=== PATIENT | male | born 1950 | race Caucasian/White ===

== ENCOUNTER 2021-03-25 06:50 | Day surgery (SDC) | payer MEDICARE, OTHER ==
[~2021-03-25] VITALS: Ht 182.9 cm; Wt 69.9 kg
[~2021-03-25 06:50] MED LIST: AMLO2.5T2 PO; CEPH-585 PO; CLOP75TA15 PO; FERR324T4 PO; LISI40TA13 PO; NICO-687 TD
[2021-03-25 07:22] VITALS: BP 181/83
[2021-03-25] MEDS ORDERED: LIDOcaine 1% 30ml preserv. free vial SQ STA (08:17)
[2021-03-25 09:40] VITALS: BP 184/85
== END 2021-03-25 09:45 | disposition home or self-care (01) ==
LOC: SSTAY O 06:50
PROVIDERS: ATTEND Radiology Vascular & Interventional Radiology
DX: I97.638 Postprocedural hematoma of a circulatory system organ or structure following other circulatory system procedure (principal); F17.210 Nicotine dependence, cigarettes, uncomplicated; Z79.01 Long term (current) use of anticoagulants; Z79.899 Other long term (current) drug therapy; Y83.8 Other surgical procedures as the cause of abnormal reaction of the patient, or of later complication, without mention of misadventure at the time of the procedure; Y92.89 Other specified places as the place of occurrence of the external cause
CPT/HCPCS: 10030

== ENCOUNTER 2021-04-01 08:56 | Day surgery (SDC) | payer MEDICARE, OTHER ==
[~2021-04-01] VITALS: Ht 182.9 cm; Wt 70.6 kg
[~2021-04-01 08:56] MED LIST changes: -CEPH-585 PO; +DOXYCYCLINE IPL ONE; +DOXYCYCLINE IV ONE; -FERR324T4 PO; -NICO-687 TD; +NORMAL SALINE IPL ONE; +NORMAL SALINE IV ONE
[2021-04-01 09:35] VITALS: BP 161/84
[2021-04-01] MEDS ORDERED: LIDOcaine 1% 30ml preserv. free vial IJ STA (10:27)
--- NOTE | 2021-04-01 11:40 | NUR ---
Seroma drained from Left groin by IR Staff Addendum: 04/01/21 at 1316 by Roberto Santana RN Amended: Links added.
--- NOTE | 2021-04-01 13:00 | NUR ---
Attempted to remove the ABX injected post drainage. No fluid found in seroma site. Pt will be discharged. Addendum: 04/01/21 at 1316 by Roberto Santana RN Amended: Links added.
[2021-04-01 13:01] VITALS: BP 180/119
[2021-04-01 13:08] VITALS: BP 178/96
[2021-05-09] MEDS ORDERED: PRED20TA PO (21:29)
[2021-05-09] MEDS ORDERED: DOXY-1 PO (21:29)
[2021-05-09] MEDS ORDERED: ALBU6.7H9 INH (21:29)
[2021-05-10] MEDS ORDERED: FERR324T4 PO (01:29)
[2021-05-10] MEDS ORDERED: CLOP75TA34 PO (01:29)
[2021-05-13] MEDS ORDERED: CIPR250T4 PO (12:16)
[2021-05-13] MEDS ORDERED: HYDR-3965 PO (12:16)
== END 2021-04-01 13:15 | disposition home or self-care (01) ==
LOC: SSTAY O 08:56
PROVIDERS: ATTEND Radiology Vascular & Interventional Radiology
DX: L76.34 Postprocedural seroma of skin and subcutaneous tissue following other procedure (principal); F17.210 Nicotine dependence, cigarettes, uncomplicated; Z79.899 Other long term (current) drug therapy; Z79.01 Long term (current) use of anticoagulants; Y83.8 Other surgical procedures as the cause of abnormal reaction of the patient, or of later complication, without mention of misadventure at the time of the procedure
CPT/HCPCS: 49185; 49406; J3490; Q9967

== ENCOUNTER 2021-04-29 11:06 | Day surgery (SDC) | payer MEDICARE, OTHER ==
[2021-04-29] VITALS (8 sets, daily range): BP systolic 147–182; BP diastolic 82–121
[~2021-04-29] VITALS: Ht 182.9 cm; Wt 68.2 kg
[~2021-04-29 11:06] MED LIST changes: -DOXYCYCLINE IPL ONE; +LIDOcaine 1% 30ml preserv. free vial IJ STA; -NORMAL SALINE IPL ONE
[2021-04-29] MEDS ORDERED: normal saline 1000ml 1,000 ML IV SCH (12:50)
--- NOTE | 2021-04-29 13:35 | NUR ---
Arden CANO at bedside. Pt tolerated procedure well. Will continue to monitor.
[2021-05-09] MEDS ORDERED: ALBU6.7H9 INH (21:29)
[2021-05-09] MEDS ORDERED: DOXY-1 PO (21:29)
[2021-05-09] MEDS ORDERED: PRED20TA PO (21:29)
[2021-05-10] MEDS ORDERED: FERR324T4 PO (01:29)
[2021-05-10] MEDS ORDERED: CLOP75TA34 PO (01:29)
[2021-05-13] MEDS ORDERED: CIPR250T4 PO (12:16)
[2021-05-13] MEDS ORDERED: HYDR-3965 PO (12:16)
== END 2021-04-29 14:15 | disposition home or self-care (01) ==
LOC: SSTAY O 11:06
PROVIDERS: ATTEND Radiology Diagnostic Radiology
DX: L76.34 Postprocedural seroma of skin and subcutaneous tissue following other procedure (principal); Z79.899 Other long term (current) drug therapy; Z79.01 Long term (current) use of anticoagulants; Y83.8 Other surgical procedures as the cause of abnormal reaction of the patient, or of later complication, without mention of misadventure at the time of the procedure
CPT/HCPCS: 10030; 49185; J3490; Q9967

== ENCOUNTER 2021-06-20 14:02 | Emergency (ER) | payer MEDICARE, OTHER ==
[~2021-06-20] VITALS: Ht 182.9 cm; Wt 70.4 kg
[~2021-06-20 14:02] MED LIST changes: +ACAM333T8 PO; +CIPR250T4 PO; -CLOP75TA15 PO; +CLOP75TA34 PO; -DOXYCYCLINE IV ONE; -LIDOcaine 1% 30ml preserv. free vial IJ STA; -NORMAL SALINE IV ONE
[2021-06-20 16:24] LABS: BASOPHILS # (AUTO) 0.1 X10'3 (0-0.2); BASOPHILS % (AUTO) 0.9 % (0-1); EOSINOPHILS % (AUTO) 0.5 % (0-6); HEMATOCRIT 40.1 % (42.0-52.0); HEMOGLOBIN 13.8 g/dl (14.0-17.9); LYMPHOCYTES # (AUTO) 1.6 X10'3 (1.1-4.8); LYMPHOCYTES % (AUTO) 15.3 % (21-51); MEAN CORPUSCULAR HGB CONC 34.5 g/dL (33.0-36.5); MEAN CORPUSCULAR VOLUME 107.4 FL (78-98); MEAN PLATELET VOLUME 7.2 FL (7.4-10.4); MONOCYTES # (AUTO) 0.8 X10'3 (0-0.9); MONOCYTES % (AUTO) 7.7 % (2-12); NEUTROPHILS # (AUTO) 7.9 X10'3 (1.8-7.7); NEUTROPHILS % (AUTO) 75.6 % (42-75); PLATELET COUNT 402 X10'3 (140-440); RED BLOOD COUNT 3.73 X10'6 (4.70-6.10); RED CELL DISTRIBUTION WIDTH 16.5 % (11.5-14.5); WHITE BLOOD COUNT 10.4 X10'3 (4.5-11.0)
[2021-06-20 16:33] LABS: ALANINE AMINOTRANSFERASE 14 U/L (12-78); ALBUMIN 2.8 G/DL (3.4-5.0); ALBUMIN/GLOBULIN RATIO 0.8 (1.1-1.5); ALKALINE PHOSPHATASE 117 IU/L (46-116); ANION GAP 10 (8-16); ASPARTATE AMINO TRANSFERASE 15 U/L (10-37); BILIRUBIN,TOTAL 0.9 MG/DL (0.1-1.0); BLOOD UREA NITROGEN 10 MG/DL (7-18); BUN/CREATININE RATIO 13.9 (5.4-32.0); CALCIUM 8.5 MG/DL (8.5-10.1); CHLORIDE 107 MMOL/L (99-107); CREATININE 0.72 MG/DL (0.60-1.10); GLUCOSE 91 MG/DL (70-104); SODIUM 145 MMOL/L (135-145); TOTAL CARBON DIOXIDE 28.3 MMOL/L (24-32); TOTAL PROTEIN 6.1 G/DL (6.4-8.2); eGFR > 90 ML/MIN
[2021-06-20 16:34] LABS: POTASSIUM 2.8 MMOL/L (3.5-5.1)
[2021-06-20] MEDS ORDERED: potassium Cl 10 mEq/100mL bag IV ONE (16:40)
[2021-06-20] MEDS ORDERED: potassium Cl 20 mEq SR tablet PO ONE (16:40)
[2021-06-20] MEDS ORDERED: POTA20TA34 PO (18:03)
[2021-06-20 18:04] VITALS: BP 181/87
== END 2021-06-20 19:14 | disposition home or self-care (01) ==
LOC: ER 14:02
DX: R60.0 Localized edema (principal); Z86.718 Personal history of other venous thrombosis and embolism; Z86.2 Personal history of diseases of the blood and blood-forming organs and certain disorders involving the immune mechanism; Z79.2 Long term (current) use of antibiotics; Z79.899 Other long term (current) drug therapy
CPT/HCPCS: 36415; 80053; 85025; 93922; 93926; 96360; 99284; J3480

== ENCOUNTER 2021-07-07 11:06 | Emergency (ER) | payer MEDICARE, OTHER ==
[~2021-07-07] VITALS: Ht 193 cm; Wt 68.2 kg
[~2021-07-07 11:06] MED LIST changes: +POTA20TA34 PO
[2021-07-07 11:37] VITALS: BP 130/86
== END 2021-07-08 07:44 | disposition left against medical advice (07) ==
LOC: ER 11:06
DX: M79.605 Pain in left leg (principal); Z86.2 Personal history of diseases of the blood and blood-forming organs and certain disorders involving the immune mechanism; Z86.61 Personal history of infections of the central nervous system; Z79.2 Long term (current) use of antibiotics; Z79.899 Other long term (current) drug therapy
CPT/HCPCS: 99281; 99284